=== PATIENT | female | born 1975 | race Caucasian/White ===

== ENCOUNTER 2018-06-01 17:57 | Emergency (ER) | payer BC ==
--- NOTE | 2018-06-01 18:17 | EDM.PDOC ---
Scribed by Barbara Patton 06/01/18 0655 for Shakeel Chambers MD ED HPI GENERAL MEDICAL PROBLEM - General Chief Complaint: ENT Problem Stated Complaint: TOOTH PAIN [id number] Time Seen by Provider: 06/01/18 18:06 Source of Information: Reports: Patient, RN, RN Notes Reviewed History Limitations: Reports: No Limitations - History of Present Illness INITIAL COMMENTS - FREE TEXT/NARRATIVE: Patient presents to ER with tooth pain since Tuesday. She cannot get into to see a dentist until next week. Her pain is 10/10. Onset Date: 05/30/18 Duration: Getting Worse Location: Reports: Other (tooth) Quality: Reports: Ache Severity: Severe Improves with: Reports: None Worsens with: Reports: None Associated Symptoms: Reports: No Other Symptoms Left Lower Oral/Mouth Pain Score (Numeric/FACES): 10 - Related Data Allergies Allergy/AdvReac Type Severity Reaction Status Date / Time Penicillins Allergy Cannot Verified 06/01/18 18:11 Remember Sulfa (Sulfonamide Allergy Rash Verified 06/01/18 18:11 Antibiotics) Home Meds: Home Meds Sertraline [Zoloft] 1 tab PO DAILY 11/26/14 [History] buPROPion [Wellbutrin XL] 1 tab PO DAILY 11/26/14 [History] ED ROS ENT - Review of Systems Review Of Systems: ROS reveals no pertinent complaints other than HPI. ED EXAM, ENT - Physical Exam Exam: See Below Exam Limited By: No Limitations General Appearance: Alert, WD/WN, No Apparent Distress Ears: Normal External Exam Nose: Normal Inspection Mouth/Throat: Normal Lips, Normal Oropharynx, Dental Abcess (left mandibular molar), Dental Pain, Dental Tenderness Head: Atraumatic, Normocephalic. No: Facial Swelling Respiratory/Chest: No Respiratory Distress Cardiovascular: Regular Rate, Rhythm Neurological: Alert, CN II-XII Intact, No Motor/Sensory Deficits Psychiatric: Normal Mood Skin: Warm, Dry, Intact, Normal Color, No Rash Course - Vital Signs Last Recorded V/S: Last Vital Signs Temp 36.6 C 06/01/18 18:09 Pulse 111 H 06/01/18 18:09 Resp 16 06/01/18 18:09 BP 160/96 H 06/01/18 18:09 Pulse Ox 98 06/01/18 18:09 Departure - Departure Time of Disposition: 18:16 Disposition: Home, Self-Care 01 Condition: Good Clinical Impression: Dental abscess - Discharge Information *PRESCRIPTION DRUG MONITORING PROGRAM REVIEWED*: No *COPY OF PRESCRIPTION DRUG MONITORING REPORT IN PATIENT JORGE: No Instructions: Dental Abscess Forms: ED Department Discharge Additional Instructions: Rx: Clindamycin 300mg Rx: Tylenol No. 3 Rx: Viscous Lidocaine 2% Gel Follow up with dentist as planned. I have read and agree with the documentation that has been completed regarding this visit. By signing this record, I attest that the documentation was completed in my physical presence and is an accurate record of the encounter.
== END 2018-06-01 18:44 | disposition home or self-care (01) ==
LOC: DL.ED 17:57
CPT/HCPCS: 99282

== ENCOUNTER 2022-06-08 22:20 | Emergency (ER) | payer BC ==
[2022-06-08 22:42] VITALS: PULSE 84
[2022-06-08 23:33] LABS: ANION GAP 14.5 mEq/L (7-13)
[2022-06-08 23:41] VITALS: BP 109/98
== END 2022-06-08 23:39 | disposition home or self-care (01) ==
LOC: DL.ED 22:20
DX: R03.0 Elevated blood-pressure reading, without diagnosis of hypertension (principal); F41.9 Anxiety disorder, unspecified; F17.210 Nicotine dependence, cigarettes, uncomplicated; Z88.0 Allergy status to penicillin; Z88.2 Allergy status to sulfonamides
CPT/HCPCS: 36415; 80053; 84484; 85025; 93005; 93010; 99283; 99284

== ENCOUNTER 2022-10-31 02:35 | Emergency (ER) | payer BC ==
[2022-10-31] MEDS ORDERED: Ondansetron 4 MG/2 ML SDV IVPUSH ONE (03:15)
[2022-10-31] MEDS ORDERED: Sodium Chloride 0.9% 10 ML Syringe FLUSH PRN (03:15)
[2022-10-31] MEDS ORDERED: Lactated Ringers 1,000 ML IV ONE (03:15)
[2022-10-31] MEDS ORDERED: Ketorolac 30 MG/ML SDV IVPUSH ONE (03:15)
[2022-10-31 04:30] VITALS: BP 131/70; PULSE 67
== END 2022-10-31 04:41 | disposition home or self-care (01) ==
LOC: DL.ED 02:35
DX: R51.9 Headache, unspecified (principal); R03.0 Elevated blood-pressure reading, without diagnosis of hypertension; F17.210 Nicotine dependence, cigarettes, uncomplicated; Z88.0 Allergy status to penicillin; Z88.2 Allergy status to sulfonamides
CPT/HCPCS: 96361; 96374; 96375; 99282; 99283-25; J1885; J2405; J3490; J7120

== ENCOUNTER 2023-04-10 22:40 | Emergency (ER) | payer BC ==
[2023-04-10] MEDS: Metoclopramide 10 MG/2 ML SDV IVPUSH ONE (23:13)
[2023-04-10] MEDS: Sodium Chloride 0.9% 10 ML Syringe FLUSH PRN (23:14)
[2023-04-10] MEDS: Ketorolac 30 MG/ML SDV IVPUSH ONE (23:15)
[2023-04-10] MEDS: diphenhydrAMINE 50 MG/ML SDV IVPUSH ONE (23:17)
[2023-04-10 23:37] VITALS: BP 136/87; PULSE 83
== END 2023-04-11 00:21 | disposition home or self-care (01) ==
LOC: DL.ED 22:40
DX: G43.909 Migraine, unspecified, not intractable, without status migrainosus (principal); F17.210 Nicotine dependence, cigarettes, uncomplicated; Z88.2 Allergy status to sulfonamides; Z79.899 Other long term (current) drug therapy; Z88.0 Allergy status to penicillin
CPT/HCPCS: 96374; 96375; 99283; J1200; J1885; J2765; J3490

== ENCOUNTER 2024-06-08 15:17 | Emergency (ER) | payer BC ==
[2024-06-08 15:48] LABS: BASOPHILS PERCENT AUTO 0.2 % (0.0-1.0); EOSINOPHILS PERCENT AUTO 1.2 % (1.0-3.0); HEMATOCRIT 42.2 % (37.0-47.0); HEMOGLOBIN 14.9 g/dL (12.0-16.0); LYMPHOCYTES PERCENT AUTO 37.3 % (20.5-50.1); MEAN CORPUSCULAR HGB CONC 35.3 g/dL (33.0-35.0); MEAN CORPUSCULAR VOLUME 85.1 fL (80-100); MONOCYTES PERCENT AUTO 5.4 % (2-8); NEUTROPHILS PERCENT AUTO 55.9 % (42.2-75.2); PLATELET COUNT,PLT 168 10^3/uL (150-450); RED BLOOD CELL COUNT 4.96 10^6/uL (4.2-5.4); WHITE BLOOD CELL COUNT,WBC 6.4 10^3/uL (5.0-10.0)
[2024-06-08] MEDS: Ketorolac 30 MG/ML SDV IVPUSH ONE (16:01)
[2024-06-08] MEDS: Metoclopramide 10 MG/2 ML SDV IVPUSH ONE (16:02)
[2024-06-08] MEDS: diphenhydrAMINE 50 MG/ML SDV IVPUSH ONE (16:03)
[2024-06-08] MEDS: Magnesium Sulf/Wat 2 GM/50 mL 2 GM in Premix Bag 1 BAG IV ONE (16:04)
[2024-06-08] MEDS: Lactated Ringers 1,000 ML IV ONE (16:05)
[2024-06-08 16:11] LABS: A/G RATIO 1.1; ALBUMIN 3.9 g/dL (3.4-5.0); ANION GAP 12.7 mEq/L (7-13); BILIRUBIN TOTAL 0.4 mg/dL (0.2-1.0); BUN/CREATININE RATIO 9.8 (No establ ref range); CALCIUM 9.6 mg/dL (8.5-10.1); CREATININE 0.82 mg/dL (0.55-1.02); EST CRCL DRUG DOSING (CG) 75.5 mL/min; POTASSIUM,K 3.7 mmol/L (3.5-5.1); PROTEIN TOTAL,TP 7.4 g/dL (6.4-8.2)
[2024-06-08 16:28] VITALS: BP 144/88; PULSE 74
== END 2024-06-08 16:46 | disposition home or self-care (01) ==
LOC: DL.ED 15:17
DX: I10 Essential (primary) hypertension (principal); Z88.0 Allergy status to penicillin; Z88.2 Allergy status to sulfonamides; Z79.899 Other long term (current) drug therapy
CPT/HCPCS: 36415; 80053; 84484; 85025; 93005; 96365; 96375; 99284; J1200; J1885; J2765; J3475; J7120; 93010